=== PATIENT | female | born 1995 | race Caucasian/White ===

== ENCOUNTER 2016-08-18 21:54 | Emergency (ER) | payer MEDICAID, OTHER ==
--- NOTE | 2016-08-18 22:27 | ERNOTE ---
Abdominal HPI - General Chief Complaint: Constipation Time Seen by Provider: 08/18/16 22:14 Source: patient Exam Limitations: no limitations - Immun/Allergies/Home Medications Immunizatons: IMMUNIZATION HX Immunizations Up to Date No History of Influenza Vaccine No Allergies/Adverse Reactions: Allergies No Known Allergies Allergy (Unverified 08/18/16 22:02) Home Medications: HOME MEDICATIONS Desogestrel-Ethinyl Estradiol [Enskyce] 1 each PO DAILY 08/18/16 [Last Taken 08:00] - History of Present Illness Narrative: 3 days ago began to have abdominal cramping. Unable to have BM, took a chocolate exlax with minimal results. Timing: getting worse Quality: moderate, cramping Activities at Onset: activity Modifying Factors - (Worsens): Present: eating Associated Symptoms: Present: denies symptoms Review of Systems - Review of Systems Constitutional: Absent: recent illness EYE: Present: no symptoms reported ENT: Present: no symptoms reported Respiratory: Present: no symptoms reported Cardiology: Present: no symptoms reported Gastrointestinal/Abdominal: Present: See HPI. Absent: vomiting, diarrhea Genitourinary: Present: no symptoms reported Musculoskeletal: Present: no symptoms reported Skin: Present: no symptoms reported Neurological: Present: no symptoms reported Endocrine: Present: no symptoms reported Hematologic/Lymphatic: Present: no symptoms reported Psych: Present: no symptoms reported - Patient's Past Medical History Patient History - Medical: No pertinent hx Patient History - Cardiac/Respiratory: No pertinent hx Patient History - Cancer: No Hx of Cancer Patient History - Surgical Procedures: No surgical history LMP (females 10-50): 3 weeks - Social History Living Situations: home Psych History: No pertinent hx Smoking Status: Former smoker Alcohol Use: none Drug Use: none - Immunizations Immunizations Up to Date: No History of Influenza Vaccine: No Physical Exam - Physical Exam General Appearance: Present: wd/wn, alert, no apparent distress Ears, Nose, Throat: Present: normal ENT inspection, hearing grossly normal Neck: Present: normal inspection Respiratory: Present: no respiratory distress, no accessory muscle use Gastrointestinal/Abdominal: Present: normal bowel sounds, tenderness - mid abdomen, less epigastric and no suprapubic Neurological Exam: Present: alert, oriented, normal mood/affect, no motor/ sensory deficits Skin Exam: Present: normal color, warm/dry Lymphatic Exam: Present: no adenopathy ED Progress - Results and Orders Patient's Lab Results:: I have reviewed the patient's lab results. Results and Orders: Laboratory Tests 08/18/16 08/18/16 08/18/16 22:30 22:30 22:30 WBC 6.7 Hgb 14.6 Hct 43.2 Plt Count 344 Sodium 141 Potassium 3.5 Chloride 106 BUN 10 Creatinine 0.88 Random Glucose 101 Calcium 8.8 Total Bilirubin 0.3 AST 10 ALT 14 L Alkaline Phosphatase 63 Total Protein 7.6 Albumin 3.5 Serum HCG, Qual Negative - Vital Signs Patient's Vital Signs:: I have reviewed the patient's vital signs. Vital Signs: Vital Signs 08/18/16 21:57 Temperature 36.4 C L Pulse Rate 105 H Respiratory 20 Rate Blood Pressure 138/84 O2 Sat by Pulse 97 Oximetry - X-Ray X-Ray #1 X-Ray: abdomen Interpretation: Interp. by me X-ray Comments: Mild to moderate fecal retention, no evidence of obstruction. No mass - Progress/Reassessment Chief Complaint: Constipation Departure - Departure Clinical Impression: Constipation Qualifiers: Constipation type: unspecified constipation type Qualified Code(s): K59.00 - Constipation, unspecified Disposition: Home self-care Condition: Good Instructions: Constipation, Adult, [id number] Additional Instructions: Take the milk of magnesia when you get home. Drink plenty of water tonight. If you don't have significant results by morning you may buy more milk of magnesia and take another dose tomorrow. Referrals: Lyric Roth CLARIFICATION OPERATOR [Primary Care Provider] -
[2016-08-18 22:36] LABS: Hematocrit 43.2 % (37.0-47.0); Hemoglobin 14.6 gm/dL (12.5-16.0); Mean Cell Volume 90.9 fl (78-100); Mean Corpuscular Hemoglobin 30.7 pg (27-31); Mean Corpuscular Hgb Conc 33.8 g/dl (32-36); Mean Platelet Volume 8.7 fl (6.0-9.5); Neutrophil # 3.4 K/mm3 (1.3-6.0); Neutrophil % 50.3 % (42-75.0); Platelet Count 344 K/mm3 (150-450); Red Blood Count 4.75 M/mm3 (4.2-5.4); Red Cell Distribution Width 12.1 % (11.5-14.0); White Blood Count 6.7 K/mm3 (4.0-10.5)
[2016-08-18 22:51] LABS: Albumin * 3.5 gm/dl (3.4-5.0); Anion Gap 13.8 mmol/L (6.8-13.8); BUN/Creatinine Ratio 11.4 (9.0-21.6); Bilirubin, Total 0.3 mg/dL (0.0-1.1); Ca. Corrected For Albumin 8.9 mg/dL (8.4-10.2); Calcium * 8.8 mg/dL (7.9-10.9); Carbon Dioxide 24.7 mmol/L (24-32.6); Potassium 3.5 mmol/L (3.4-4.6); Total Protein 7.6 gm/dL (6.2-8.2)
--- OUTSIDE RECORDS SUMMARY | 2016-08-18 22:59 | XMS REPORT | Continuity of Care Document ---
:1995 Author Organization [facility] ([facility]) [place] [address] Phone [phone] Care Team Providers Name Role Phone Higinio Lawrence Primary Care Provider [phone] Source Comments This disclosure is being made pursuant to the Care Everywhere program, applicable federal and state laws, and may not contain all informaitonavailable regarding this patient.[facility] ([facility]) Active Allergies and Adverse Reactions No Known Allergies Current Medications Prescription Sig. Disp. Refills Start Date End Date Status FLUoxetine 40 mg Take 40 mg by mouth Active capsule daily. desogestrel-ethinyl Take 1 tablet by Active estradiol (DESOGEN) mouth daily. tablet albuterol 90 Use 2-4 Puffs by 8.5 g 0 07/03/2016 Active mcg/Actuation inhaler inhalation every 2 hours as needed. codeine-guaifenesin Take 5 mL by mouth 60 mL 0 07/03/2016 Active 10-100 mg/5 mL solution every 6 hours as needed. 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 Polycystic ovaries 02/12/2007 Absence of menstruation 02/12/2007 Most Recent Encounters Date Type Specialty Providers Description 07/03/2016 Office Visit Family Practice Default, Other Billg - Dx: Viral URI with Defo cough (Primary Dx) Becca Phillips ARNP Social History Tobacco Use Types Packs/Day Years Used Date Never Smoker Smokeless Tobacco: Never Used Last Filed Vital Signs Vital Sign Reading Time Taken Blood Pressure 122/80 07/03/2016 12:54 PM MUSCULOSKELETAL PHYSICIAN Pulse 96 07/03/2016 12:54 PM MUSCULOSKELETAL PHYSICIAN Temperature 36.7 C (98.1 F) 07/03/2016 12:54 PM MUSCULOSKELETAL PHYSICIAN Respiratory Rate 16 07/03/2016 12:54 PM MUSCULOSKELETAL PHYSICIAN Height 1.57 m (5' 1.81") 02/12/2007 8:50 AM CDT Weight 97.796 kg (215 lb 9.6 oz) 07/03/2016 12:54 PM MUSCULOSKELETAL PHYSICIAN Body Mass Index - - Oxygen Saturation 95% 07/03/2016 12:54 PM MUSCULOSKELETAL PHYSICIAN Plan of Care Health Maintenance Due Date Last Done Comments Hepatitis B Vaccine (1 of 3 - Primary Series) 1993 HPV Vaccine (1 of 3 - Female/Unknown 3 Dose Series) 2004 Tdap Vaccine 2004 Cervical Cancer Screening 10/04/2011 Lipid Disorder Screening 10/04/2011 MMR Vaccine 10/04/2011 Td Vaccine 10/04/2011 Varicella Vaccine (1 of 2 - Adult - No Evidence of 10/04/2011 Immunity) Influenza Vaccine: Seasonal (#1) 01/25/2016 Results from Last 3 Months Not on file
[2016-08-18] MEDS ORDERED: MAGNESIUM HYDROXIDE 30 ML UDC PO ONE (23:54)
[2016-08-18] MEDS ORDERED: MAGNESIUM HYDROXIDE 30 ML UDC ONE (23:56)
[2016-08-19 00:06] VITALS: BP 130/78
== END 2016-08-19 00:04 | disposition home or self-care (01) ==
LOC: ER 21:54
DX: K59.00 Constipation, unspecified (principal)